=== PATIENT | male | born 1985 | race American Indian/Alaskan Native ===

== ENCOUNTER 2020-10-13 23:26 | Emergency (ER) | payer SELFPAY ==
--- NOTE | 2020-10-14 04:57 | Emergency Department Report ---
Abscess Boil HPI - HPI Chief Complaint: Dental/Oral Stated Complaint: SPIDER BITE Time Seen by Provider: 10/14/20 04:51 Duration: 1 Day Location: Other (Left side of face jawline) History: Yes Pain, Yes Insect Bite, No Fever, No Purulent Drainage, No Numbness, No Foreign Body, No Previous History HPI: 35-year-old -[place] male presents to the emergency room for 1 day history of left side of face swelling and pain. Patient thinks that he has gotten bit by spider. Patient reports pains 8 out of 10. He states he took Aleve earlier today and and amoxicillin. Patient denies any fever chills no chest pain or shortness of breath. Patient denies any past medical history currently takes no medications on a daily basis and has no known drug allergies. Home Medications: Previous Rx's Medication Instructions Recorded Last Taken Type Clindamycin [Clindamycin CAP] 300 mg PO Q8H 10 Days #30 cap 10/14/20 Unknown Rx Ibuprofen [Motrin 800 MG tab] 800 mg PO Q8HR PRN #30 tablet 10/14/20 Unknown Rx Allergies/Adverse Reactions: Allergies Allergy/AdvReac Type Severity Reaction Status Date / Time No Known Allergies Allergy Unverified 10/13/20 23:38 ED Review of Systems ROS: Stated complaint: SPIDER BITE Other details as noted in HPI Comment: All other systems reviewed and negative ED Past Medical Hx - Past Medical History Previous Medical History?: No - Surgical History Past Surgical History?: No - Social History Smoking Status: Never Smoker Substance Use Type: Alcohol, Marijuana - Medications Home Medications: Home Medications Medication Instructions Recorded Confirmed Last Taken Type Clindamycin [Clindamycin CAP] 300 mg PO Q8H 10 Days #30 cap 10/14/20 Unknown Rx Ibuprofen [Motrin 800 MG tab] 800 mg PO Q8HR PRN #30 tablet 10/14/20 Unknown Rx ED Abscess Boil Physical Exam - Exam General: Vital signs noted. No distress. Alert and acting appropriately. Size: 3 cm Exam: Yes Tenderness, Yes Surrounding Cellulites/Erythema, Yes Heart Murmur, Yes Normal Neurologic Exam, Yes Normal Circulation, No Fluctuance, No Lymphangitis, No Crepitation ED Course Vital Signs 10/13/20 23:32 Temperature 97.9 F Pulse Rate 97 H Respiratory 18 Rate Blood Pressure 141/84 O2 Sat by Pulse 97 Oximetry Critical care attestation.: If time is entered above; I have spent that time in minutes in the direct care of this critically ill patient, excluding procedure time. ED Medical Decision Making - Medical Decision Making 35-year-old -[place] male presents to the emergency room for 1 day history of left side of face swelling and pain. Patient thinks that he has gotten bit by spider. Patient reports pains 8 out of 10. He states he took Aleve earlier today and and amoxicillin. Patient denies any fever chills no chest pain or shortness of breath. Patient denies any past medical history currently takes no medications on a daily basis and has no known drug allergies. Patient will be treated for cellulitis. Patient be placed on clindamycin and ibuprofen. Patient is to follow-up with her primary care provider in the next 3 to 5 days for reevaluation. ED Disposition Clinical Impression: Cellulitis of jaw, left Disposition: [id number] TO HOME OR SELFCARE Is pt being admited?: No Does the pt Need Aspirin: No Condition: Stable Instructions: Cellulitis, Adult, [id number] Additional Instructions: Complete antibiotics as prescribed pain medication as needed and follow-up with your primary care provider in the next 3 to 5 days. Warm compresses to abscess area. Prescriptions: Clindamycin [Clindamycin CAP] 300 mg PO Q8H 10 Days #30 cap Ibuprofen [Motrin 800 MG tab] 800 mg PO Q8HR PRN #30 tablet PRN Reason: Pain , Severe (7-10) Referrals: ELMER HEAD MD [Primary Care Provider] - 3-5 Days Forms: Work/School Release Form(ED)
[2020-10-14 07:13] VITALS: BP 138/92
== END 2020-10-14 05:03 | disposition home or self-care (01) ==
LOC: ED 23:26
DX: L03.211 Cellulitis of face (principal); F12.10 Cannabis abuse, uncomplicated; Z79.899 Other long term (current) drug therapy; W57.XXXA Bitten or stung by nonvenomous insect and other nonvenomous arthropods, initial encounter; Y93.89 Activity, other specified; Y92.89 Other specified places as the place of occurrence of the external cause; Y99.8 Other external cause status
CPT/HCPCS: 99282